=== PATIENT | female | born 1960 | race Caucasian/White ===

== ENCOUNTER 2024-06-09 15:03 | Emergency (ER) | payer OTHER ==
[~2024-06-09] VITALS: Ht 167.6 cm; Wt 104.0 kg
[2024-06-09 15:09] VITALS: BP 123/62
[2024-06-09] MEDS ORDERED: HYDROcodone 5 MG/Acetaminophen 325 MG/COMBO PO ONE (15:25)
[2024-06-09] MEDS ORDERED: NAPROXEN 250 MG/TAB PO ONE (15:25)
[2024-06-09 15:32] VITALS: BP 85/38
[2024-06-09 15:36] VITALS: BP 112/52
[2024-06-09 16:30] VITALS: BP 115/66
[2024-06-09] MEDS ORDERED: LORTAB 5/3255 MG PO (16:35)
[2024-06-09] MEDS ORDERED: NAPROXEN500 MG PO (16:35)
[2024-06-09 17:11] VITALS: BP 115/66
== END 2024-06-09 17:15 | disposition home or self-care (01) | DRG 563 ==
LOC: ED 15:03
PROC: 2W3CX1Z Immobilization of Right Lower Arm using Splint (ICD-10-PCS; principal; 2024-06-09)
DX: S52.501A Unspecified fracture of the lower end of right radius, initial encounter for closed fracture (principal); S52.611A Displaced fracture of right ulna styloid process, initial encounter for closed fracture; E05.90 Thyrotoxicosis, unspecified without thyrotoxic crisis or storm; W01.0XXA Fall on same level from slipping, tripping and stumbling without subsequent striking against object, initial encounter